=== PATIENT | male | born 1950 | race American Indian/Alaskan Native ===

== ENCOUNTER 2019-07-13 07:23 | Inpatient (IN) | payer MEDICARE ==
--- NOTE | 2019-07-13 08:06 | Emergency Department Report ---
HPI - General Chief Complaint: Chest Pain Time Seen by Provider: 07/13/19 07:40 - HPI HPI: 69-year-old male presents to the emergency department by EMS after they originally got a call from a third constitution party with the complaint of chest pain. When EMS arrived to the house, the patient was the only person there and appears to have been the person who called 911. When I asked the patient the reason he has come to the hospital, or what is bothering him, the patient starts talking about possible stroke as he says that he was shaking and it woke him from sleep. However he says that he remembers the shaking/convulsions. He is a very poor historian however. I asked if he has ever had a stroke in the past and he answers yes. He did not initially talk about having chest pain but when asked about the original EMS call he says that he has some generalized chest discomfort. Unknown past medical history. ED Past Medical Hx - Past Medical History Previous Medical History?: Yes Hx Hypertension: Yes Hx COPD: Yes - Social History Smoking Status: Never Smoker Substance Use Type: None - Medications Home Medications: Home Medications Medication Instructions Recorded Confirmed Last Taken Type ALBUTEROL NEB's 0.083 mg INHALATION PRN PRN 07/13/19 07/13/19 07/12/19 History Albuterol Sulfate [Proventil Hfa] 2 puff PO Q4H 07/13/19 07/13/19 07/12/19 History Allopurinol 300 mg PO QDAY 07/13/19 07/13/19 07/12/19 History AtorvaSTATin [Lipitor] 20 mg PO QDAY 07/13/19 07/13/19 07/12/19 History ISOSORBIDE MONOnitrate [Imdur ER] 60 mg PO QDAY 07/13/19 07/13/19 07/12/19 History Metoprolol SUCCINATE ER TAB 12.5 mg PO QDAY 07/13/19 07/13/19 07/12/19 History hydrALAZINE 25 mg PO TID 07/13/19 07/13/19 07/12/19 History ED Review of Systems ROS: Stated complaint: GENERAL ILLNESS Other details as noted in HPI Comment: All other systems reviewed and negative Constitutional: denies: chills, fever Eyes: denies: eye pain, vision change ENT: denies: ear pain, throat pain Respiratory: denies: cough, wheezing Cardiovascular: chest pain. denies: palpitations Gastrointestinal: denies: abdominal pain, vomiting Genitourinary: denies: dysuria, discharge Musculoskeletal: denies: back pain, arthralgia Skin: denies: rash, lesions Neurological: headache, other (convulsions) Physical Exam - Physical Exam Vital Signs: Vital Signs 07/13/19 07:41 Temperature 98.2 F Pulse Rate 103 H Respiratory 20 Rate Blood Pressure 133/88 O2 Sat by Pulse 97 Oximetry Physical Exam: GENERAL: The patient is well-developed well-nourished. HENT: Normocephalic. Atraumatic. Patient has moist mucous membranes. EYES: Extraocular motions are intact. Pupils equal reactive to light bilate rally. No nystagmus. NECK: Supple. Trachea is midline. CHEST/LUNGS: Clear to auscultation. There is no respiratory distress noted. HEART/CARDIOVASCULAR: Regular. There is no tachycardia. There is no murmur. ABDOMEN: Abdomen is soft, nontender. Patient has normal bowel sounds. There is no abdominal distention. SKIN: Skin is warm and dry. NEURO: Patient is awake and cooperative. He appears to have some mild dysarthria. No facial asymmetry. No pronator drift. MUSCULOSKELETAL: There is no tenderness or deformity. There is no evidence of acute injury. ED Course Vital Signs 07/13/19 07:41 Temperature 98.2 F Pulse Rate 103 H Respiratory 20 Rate Blood Pressure 133/88 O2 Sat by Pulse 97 Oximetry ED Medical Decision Making - Lab Data Result diagrams: 07/13/19 07:58 07/13/19 07:58 - EKG Data -: EKG Interpreted by Me EKG shows normal: sinus rhythm (PVCs), axis, intervals, QRS complexes, ST-T waves (flat T waves) Rate: tachycardia (104 bpm) - EKG Data When compared to previous EKG there are: previous EKG unavailable Interpretation: other (Sinus tach with PVCs, flat T waves lateral leads. No STEMI) - Radiology Data Radiology results: report reviewed, image reviewed interpreted by me: Chest x-ray does not show any acute process. There are no pleural effusions, obvious pneumonia and there is no pneumothorax. CT HEAD WITHOUT CONTRAST INDICATION : AMS. TECHNIQUE: Axial imaging performed from the skull apex through the skull base without the use of contrast. All CT scans at this location are performed using CT dose reduction for ALARA by means of automated exposure control. COMPARISON: None FINDINGS: Parenchyma: A large hypodensity involving the superior left temporal lobe and left parietal lobe. No mass effect. No hemorrhage. No midline shift. Small chronic left basal ganglia lacunar infarcts. The brainstem and cerebellum are normal. Ventricles: The left lateral ventricle is likely larger than the right which reflects a negative mass effect of the left MCA distribution hypodensity. Soft tissues: Soft tissues including the orbits appear normal. Bones: No acute osseous abnormality. Sinuses: Sinuses and mastoid air cells are clear. IMPRESSION: 1. A subacute nonhemorrhagic left MCA infarct. 2. No evidence of acute infarct or hemorrhage. - Medical Decision Making This patient presents with the complaints of chest pain and some type of shaking or seizure-like activity, although he was awake for this. The patient is dif ficult to understand and appears to have some mild dysarthria. Otherwise there is no facial asymmetry or any obvious motor or lateralizing deficits. Based on his history and our conversation, the patient rather previously had a stroke or has concerns that he had a stroke. Regarding the chest pain, he had an EKG that does not show any signs of ST elevation AK or dysrhythmia. Labs have been most ly unremarkable including negative troponin. Chest x-ray did not show any acute process. Regarding the patient's concern for stroke, he is low on the NIH stroke scale secondary to some perceived mild dysarthria. I do not see any lateralizing deficits. CT scan of the head was done that shows a subacute left MCA infarct. There is no evidence of any acute infarct or hemorrhage but given his symptoms he may need further evaluation and workup for possible CVA. Since there is no last known well time the patient is outside of the window for TPA. He will be given a full dose aspirin. Patient has been accepted for admission by the hospitalist, Dr. Thomas - Differential Diagnosis CVA, TIA, AK, Hypoglycemia, Dysrythmia Critical Care Time: No Critical care attestation.: If time is entered above; I have spent that time in minutes in the direct care of this critically ill patient, excluding procedure time. ED Disposition Clinical Impression: Acute chest pain CVA (cerebral vascular accident) Qualifiers: CVA mechanism: unspecified Qualified Code(s): I63.9 - Cerebral infarction, unspecified Disposition: DC-01 TO HOME OR SELFCARE Is pt being admited?: No Condition: Fair Time of Disposition: 16:32 - Assessment Assessment Interval: Baseline - Level of Consciousness 1a. Level of Consciousness: alert/keenly responsive - LOC Questions 1b. LOC Questions: answers both correctly - LOC Command 1c. LOC Commands: performs tasks correctly - Best Gaze 2. Best Gaze: normal - Visual 3. Visual: no visual loss - Facial Palsy 4. Facial Palsy: normal symmetrical movement - Motor Arm 5a. Motor Arm Left: no drift 5b. Motor Arm Right: no drift - Motor Leg 6a. Motor Leg Left: no drift 6b. Motor Leg Right: no drift - Limb Ataxia 7. Limb Ataxia: absent - Sensory 8. Sensory: normal - Best Language 9. Best Language: no aphasia - Dysarthria 10. Dysarthria: mild/moderate dysarthria - Extinction and Inattention 11. Extinction/Inattention: no abnormality - Scoring Total Score: 1 Stroke Severity: Minor Stroke
[2019-07-13 08:15] LABS: Basophils # (Auto) 0.1 K/mm3 (0.0-0.1); Basophils % (Auto) 0.6 % (0.0-1.8); Eosinophils # (Auto) 0.2 K/mm3 (0.0-0.4); Eosinophils % (Auto) 1.6 % (0.0-4.3); Hematocrit 38.1 % (35.5-45.6); Hemoglobin 12.2 gm/dl (11.8-15.2); Lymphocytes # (Auto) 1.7 K/mm3 (1.2-5.4); Mean Corpuscular HGB Conc 32 % (32-34); Mean Corpuscular Volume 95 fl (84-94); Monocytes # (Auto) 0.7 K/mm3 (0.0-0.8); Monocytes % (Auto) 6.4 % (0.0-7.3); Platelet Count 192 K/mm3 (140-440); Red Blood Count 4.02 M/mm3 (3.65-5.03); Red Cell Distribution Width 16.1 % (13.2-15.2)
[2019-07-13 08:23] LABS: INR 0.97 (0.87-1.13)
[2019-07-13 08:24] LABS: Partial Thromboplastin Time 24.5 Sec. (24.2-36.6)
--- NOTE | 2019-07-13 08:26 | XRay Report ---
CHEST 1 VIEW INDICATION: CP. Acute generalized chest pain COMPARISON: 02/09/2013 FINDINGS: Support devices: Unipolar cardiac lead projects into the left ventricle. Heart: Within normal limits. Lungs/Pleura: No acute air space or interstitial disease. Additional findings: None. IMPRESSION: 1. No acute findings. Signer Name: Chung Kwan MD Signed: 07/13/2019 8:22 AM Workstation Name: [id number]
[2019-07-13 08:34] LABS: Alanine Aminotransferase 9 units/L (7-56); Albumin 3.7 g/dL (3.9-5); BUN/Creatinine Ratio 6; Blood Urea Nitrogen 7 mg/dL (9-20); Hemolysis Index 7
--- NOTE | 2019-07-13 11:29 | Cat Scan Report ---
CT HEAD WITHOUT CONTRAST INDICATION : AMS. TECHNIQUE: Axial imaging performed from the skull apex through the skull base without the use of con trast. All CT scans at this location are performed using CT dose reduction for ALARA by means of aut omated exposure control. COMPARISON: None FINDINGS: Parenchyma: A large hypodensity involving the superior left temporal lobe and left parietal lobe. No mass effect. No hemorrhage. No midline shift. Small chronic left basal ganglia lacunar infarcts. The brainstem and cerebellum are normal. Ventricles: The left lateral ventricle is likely larger than the right which reflects a negative mas s effect of the left MCA distribution hypodensity. Soft tissues: Soft tissues including the orbits appear normal. Bones: No acute osseous abnormality. Sinuses: Sinuses and mastoid air cells are clear. IMPRESSION: 1. A subacute nonhemorrhagic left MCA infarct. 2. No evidence of acute infarct or hemorrhage. Signer Name: Chris Kat MD Signed: 07/13/2019 11:24 AM Workstation Name: [id number]
[2019-07-13 11:30] LABS: Bacteria,Urine 1+ /HPF (Negative); Bilirubin,Urine NEG (Negative); Blood,Urine NEG (Negative); Color,Urine Yellow (Yellow); Mucus,Urine FEW /HPF; Urobilinogen,Urine < 2.0 mg/dL (<2.0)
[2019-07-13 11:40] LABS: Amphetamine Screen,Urine PRESUMPTIVE NEGATIVE; Benzodiazepines Screen,Urine PRESUMPTIVE NEGATIVE; Cannabinoid Screen,Urine PRESUMPTIVE NEGATIVE; Cocaine Screen,Urine PRESUMPTIVE NEGATIVE; Methadone Screen,Urine PRESUMPTIVE NEGATIVE; Opiate Screen,Urine PRESUMPTIVE NEGATIVE
[2019-07-13] MEDS ORDERED: BABY ASPIRIN PO ONE (12:15)
[2019-07-13] MEDS ORDERED: BABY ASPIRIN ONE (14:35)
[2019-07-13] MEDS ORDERED: ALBUTEROL INHALATION PRN (22:02)
[2019-07-13] MEDS ORDERED: ZOFRAN IV PRN (22:04)
[2019-07-13] MEDS ORDERED: TYLENOL PO PRN (22:04)
[2019-07-13] MEDS ORDERED: SODIUM CHLORIDE FLUSH SYRINGE 10 ML IV PRN (22:04)
[2019-07-13] MEDS ORDERED: DILAUDID IV PRN (22:04)
[2019-07-13] MEDS ORDERED: IBUPROFEN PO PRN (22:04)
[2019-07-13] MEDS ORDERED: PROAIR IH SCH (22:15)
[2019-07-13] MEDS: SODIUM CHLORIDE FLUSH SYRINGE 10 ML IV SCH (22:45)
[2019-07-14] MEDS ORDERED: PROVENTIL IH SCH
[2019-07-14] MEDS ORDERED: PROVENTIL IH PRN (00:39)
[2019-07-14 06:02] LABS: Basophils % (Auto) 0.6 % (0.0-1.8); Eosinophils # (Auto) 0.4 K/mm3 (0.0-0.4); Eosinophils % (Auto) 4.8 % (0.0-4.3); Hematocrit 38.4 % (35.5-45.6); Hemoglobin 12.4 gm/dl (11.8-15.2); Lymphocytes # (Auto) 1.8 K/mm3 (1.2-5.4); Mean Corpuscular HGB Conc 32 % (32-34); Mean Corpuscular Volume 94 fl (84-94); Monocytes # (Auto) 0.6 K/mm3 (0.0-0.8); Monocytes % (Auto) 7.9 % (0.0-7.3); Platelet Count 205 K/mm3 (140-440); Red Blood Count 4.07 M/mm3 (3.65-5.03)
[2019-07-14 06:07] LABS: Alanine Aminotransferase 9 units/L (7-56); Albumin 3.7 g/dL (3.9-5); BUN/Creatinine Ratio 8; Blood Urea Nitrogen 8 mg/dL (9-20); Calcium 9.1 mg/dL (8.4-10.2); Hemolysis Index 2
--- NOTE | 2019-07-14 06:15 | Event Note ---
Date: 07/13/19 See H/p in reports Chest pain r/o MO HTN Gout HLD
--- NOTE | 2019-07-14 06:37 | History and Physical Report ---
CHIEF COMPLAINT: Left-sided chest pain for 1 day. HISTORY OF PRESENT ILLNESS: A 69-year-old -[place] male with history of hypertension and COPD, comes in for left-sided chest pain for 1 day duration. Chest pain woke him from sleep. The patient also stated that he was having shaking. The patient is a very poor historian, not able to describe. Chest pain is retrosternal, nonradiating. No diaphoresis, no shortness of breath, no palpitations. Chest pain is about 6 on a scale of 1-10. No exacerbating or relieving factors. No recent travel. PAST MEDICAL HISTORY: Significant for hypertension, hyperlipidemia, coronary artery disease, asthma. SOCIAL HISTORY: Does not smoke. No alcohol. PAST SURGICAL HISTORY: None. FAMILY HISTORY: Hypertension. REVIEW OF SYSTEMS: Significant for left-sided chest pain with no radiation. Pain is about 6 on a scale of 1-10. Otherwise, no shortness of breath. Otherwise, review of systems negative. A 14-point review of systems is done. PHYSICAL EXAMINATION: GENERAL: A young elderly male, obese, resting in bed comfortably. VITAL SIGNS: Blood pressure is 133/88 and 141/100, temperature is 98.2, pulse is 103, respirations are 20, sats 97%. HEENT: Unremarkable. Pupils equal and reactive. NECK: Supple, no lymphadenopathy, no thyromegaly. LUNGS: Clear to auscultation and percussion. Good air entry. CARDIOVASCULAR: S1, S2 heard. No gallop, no murmur, no rub. Apical impulse in left fifth intercostal space and midclavicular line. ABDOMEN: Soft and benign. No hepatosplenomegaly. No guarding, no rigidity. Hernial orifices are normal. EXTREMITIES: Good pedal pulses. No pedal edema. CENTRAL NERVOUS SYSTEM: Alert and oriented x 4, nonfocal exam. Moving all four extremities. SKIN: Normal. LABORATORY DATA: EKG shows sinus tachycardia, heart rate of 104. Premature ventricular complexes. Nonspecific T-wave abnormalities. Chest x-ray, no acute findings. Head CT, subacute nonhemorrhagic left MCA infarct. No evidence of acute infarct or hemorrhage. Labs are significant for normal CBC. Electrolytes are normal. Glucose is 155. A1c is 5.9. Urine is negative. Drug screen is negative. ASSESSMENT AND PLAN: 1. Chest pain, rule out myocardial infarction, chest pain protocol. Serial troponins. Differential diagnosis of costochondritis and gastroesophageal reflux disease ruled out. 2. Hypertension. Continue antihypertensives in the form of metoprolol 12.5 once a day and hydralazine 25 mg 3 times a day. 3. Coronary artery disease. Continue Imdur. 4. Hyperlipidemia. Continue atorvastatin. 5. Asthma. Continue albuterol inhalers and nebulizers. 6. Gout. Continue allopurinol for prevention of gout. 7. Deep venous thrombosis prophylaxis, on Lovenox and gastrointestinal prophylaxis. JOB# [id number] VSM/NTS
[2019-07-14] MEDS ORDERED: LEXISCAN IV ONE ×3 (08:10→10:20)
[2019-07-14] MEDS: APRESOLINE PO SCH ×2 (09:08→21:45)
[2019-07-14] MEDS ORDERED: PNEUMOVAX 23 IM ONE (12:00)
[2019-07-14] MEDS: ZYLOPRIM PO SCH (12:12)
[2019-07-14] MEDS: IMDUR PO SCH (12:12)
[2019-07-14] MEDS: PEPCID PO SCH ×2 (12:13→21:46)
[2019-07-14] MEDS: TOPROL XL PO SCH (12:14)
[2019-07-14] MEDS: SODIUM CHLORIDE FLUSH SYRINGE 10 ML IV SCH ×2 (12:18→21:47)
[2019-07-14] MEDS: COZAAR PO SCH (12:20)
[2019-07-14] MEDS ORDERED: LOVENOX SUB-Q SCH (22:00)
--- NOTE | 2019-07-15 05:41 | Progress Note ---
Assessment and Plan Assessment and plan: Chest pain. Admitted to Telemetry Stress test today Hypertension Monitor BP Full code status may dc home if stress test negative History Interval history: chest pain Hospitalist Physical - Physical exam Narrative exam: Gen: Not in acute distress, lying in bed HEENT: Normocephalic, atraumatic Neck: supple, no JVD Heart: S1 and S2 reg, tachy, no murmurs, rubs or gallop Lungs: Clear to auscultation, no rhonchi, no wheeze Abd: soft, non tender, non distended, normal BS, Ext: No edema, no clubbing, no cyanosis Neuro: Awake, alert, oriented X 3, no focal neurological signs - Constitutional Vitals: Temp Pulse Resp BP Pulse Ox 98.6 F 78 18 126/76 99 07/15/19 03:17 07/15/19 05:00 07/15/19 03:17 07/15/19 03:17 07/15/19 03:17 Results - Labs CBC & Chem 7: 07/14/19 05:28 07/14/19 05:28 Labs: Laboratory Last Values WBC 7.6 K/mm3 (4.5-11.0) 07/14/19 05:28 RBC 4.07 M/mm3 (3.65-5.03) 07/14/19 05:28 Hgb 12.4 gm/dl (11.8-15.2) 07/14/19 05:28 Hct 38.4 % (35.5-45.6) 07/14/19 05:28 MCV 94 fl (84-94) 07/14/19 05:28 MCH 31 pg (28-32) 07/14/19 05:28 MCHC 32 % (32-34) 07/14/19 05:28 RDW 16.0 % (13.2-15.2) H 07/14/19 05:28 Plt Count 205 K/mm3 (140-440) 07/14/19 05:28 Lymph % (Auto) 24.0 % (13.4-35.0) 07/14/19 05:28 [place] % (Auto) 7.9 % (0.0-7.3) H 07/14/19 05:28 Eos % (Auto) 4.8 % (0.0-4.3) H 07/14/19 05:28 Baso % (Auto) 0.6 % (0.0-1.8) 07/14/19 05:28 Lymph # 1.8 K/mm3 (1.2-5.4) 07/14/19 05:28 [place] # 0.6 K/mm3 (0.0-0.8) 07/14/19 05:28 Eos # 0.4 K/mm3 (0.0-0.4) 07/14/19 05:28 Baso # 0.0 K/mm3 (0.0-0.1) 07/14/19 05:28 Seg Neutrophils % 62.7 % (40.0-70.0) 07/14/19 05:28 Seg Neutrophils # 4.7 K/mm3 (1.8-7.7) 07/14/19 05:28 PT 12.6 Sec. (12.2-14.9) 07/13/19 07:58 INR 0.97 (0.87-1.13) 07/13/19 07:58 APTT 24.5 Sec. (24.2-36.6) 07/13/19 07:58 Sodium 138 mmol/L (137-145) 07/14/19 05:28 Potassium 4.3 mmol/L (3.6-5.0) 07/14/19 05:28 Chloride 98.7 mmol/L (98-107) 07/14/19 05:28 Carbon Dioxide 30 mmol/L (22-30) 07/14/19 05:28 14 mmol/L 07/14/19 05:28 BUN 8 mg/dL (9-20) L 07/14/19 05:28 1.0 mg/dL (0.8-1.5) 07/14/19 05:28 Estimated GFR > 60 ml/min 07/14/19 05:28 8 % 07/14/19 05:28 Glucose 123 mg/dL (75-100) H 07/14/19 05:28 5.9 % (4-6) 07/13/19 22:43 Calcium 9.1 mg/dL (8.4-10.2) 07/14/19 05:28 0.50 mg/dL (0.1-1.2) 07/14/19 05:28 AST 23 units/L (5-40) 07/14/19 05:28 ALT 9 units/L (7-56) 07/14/19 05:28 99 units/L (35-129) 07/14/19 05:28 < 0.010 ng/mL (0.00-0.029) 07/14/19 05:28 7.3 g/dL (6.3-8.2) 07/14/19 05:28 3.7 g/dL (3.9-5) L 07/14/19 05:28 1.0 % 07/14/19 05:28 TSH 2.250 mlU/mL (0.270-4.200) 07/13/19 07:58 Yellow (Yellow) 07/13/19 10:54 Clear (Clear) 07/13/19 10:54 5.0 (5.0-7.0) 07/13/19 10:54 Ur Specific [place] 1.021 (1.003-1.030) 07/13/19 10:54 30 mg/dl mg/dL (Negative) 07/13/19 10:54 Neg mg/dL (Negative) 07/13/19 10:54 Neg mg/dL (Negative) 07/13/19 10:54 Neg (Negative) 07/13/19 10:54 Neg (Negative) 07/13/19 10:54 Neg (Negative) 07/13/19 10:54 < 2.0 mg/dL (<2.0) 07/13/19 10:54 Ur Leukocyte Esterase Neg (Negative) 07/13/19 10:54 5.0 /HPF (0.0-6.0) 07/13/19 10:54 3.0 /HPF (0.0-6.0) 07/13/19 10:54 U Epithel Cells (Auto) 1.0 /HPF (0-13.0) 07/13/19 10:54 1+ /HPF (Negative) 07/13/19 10:54 Few /HPF 07/13/19 10:54 Presumptive negative 07/13/19 10:54 Presumptive negative 07/13/19 10:54 Ur Barbiturates Screen Presumptive negative 07/13/19 10:54 Ur Phencyclidine Scrn Presumptive negative 07/13/19 10:54 Ur Amphetamines Screen Presumptive negative 07/13/19 10:54 U Benzodiazepines Scrn Presumptive negative 07/13/19 10:54 Presumptive negative 07/13/19 10:54 U Marijuana (THC) Screen Presumptive negative 07/13/19 10:54 Disclamer 07/13/19 10:54 Active Medications - Current Medications Current Medications: Generic Name Dose Route Start Last Admin Trade Name Freq PRN Reason Stop Dose Admin Acetaminophen 650 mg 07/13/19 22:04 Tylenol PO Q4H PRN Pain MILD(1-3)/Fever >100.5/[place] Albuterol 2.5 mg 07/14/19 00:39 Proventil IH Q4HRT PRN Shortness Of Breath Allopurinol 300 mg 07/14/19 10:00 07/14/19 12:12 Zyloprim PO 300 mg QDAY EARNEST Administration Atorvastatin Calcium 20 mg 07/14/19 10:00 07/14/19 12:12 Lipitor PO 20 mg QDAY EARNEST Administration Enoxaparin Sodium 40 mg 07/14/19 22:00 07/14/19 21:46 Lovenox SUB-Q 40 mg QDAY@2200 EARNEST Administration Famotidine 20 mg 07/14/19 10:00 07/14/19 21:46 Pepcid PO 20 mg BID EARNEST Administration Hydralazine HCl 25 mg 07/14/19 08:00 07/14/19 21:45 Apresoline PO 25 mg TID EARNEST Administration Hydromorphone HCl 0.5 mg 07/13/19 22:04 Dilaudid IV Q3H PRN Pain , Severe (7-10) Ibuprofen 600 mg 07/13/19 22:04 07/14/19 12:13 Ibuprofen PO 600 mg Q6H PRN Administration Pain, Mild (1-3) Isosorbide Mononitrate 60 mg 07/14/19 10:00 07/14/19 12:12 Imdur PO 60 mg QDAY EARNEST Administration Losartan Potassium 100 mg 07/14/19 10:00 07/14/19 12:20 Cozaar PO 100 mg QDAY EARNEST Administration Metoprolol Succinate 12.5 mg 07/14/19 10:00 07/14/19 12:14 Toprol Xl PO 12.5 mg QDAY EARNEST Administration Ondansetron HCl 4 mg 07/13/19 22:04 Zofran IV Q8H PRN Nausea And Vomiting Sodium Chloride 10 ml 07/13/19 23:00 07/14/19 21:47 Sodium Chloride Flush Syringe 10 Ml IV 10 ml BID EARNEST Administration Sodium Chloride 10 ml 07/13/19 22:04 Sodium Chloride Flush Syringe 10 Ml IV PRN PRN LINE FLUSH
[2019-07-15 08:16] VITALS: BP 124/72
--- NOTE | 2019-07-15 08:38 | Discharge Summary ---
Providers - Providers Date of Admission: 07/13/19 12:16 Date of discharge: 07/15/19 Attending physician: RADHA MA Primary care physician: SUSANNA HAMMONDS MD Hospitalization Condition: Fair Disposition: DC-01 TO HOME OR SELFCARE - Discharge Diagnoses (1) GERD (gastroesophageal reflux disease) Status: Acute (2) Acute chest pain Status: Acute Comment: due to GERD Exam - Constitutional Vitals: Temp Pulse Resp BP Pulse Ox 97.8 F 91 H 18 124/72 100 07/15/19 07:54 07/15/19 07:54 07/15/19 07:54 07/15/19 07:54 07/15/19 07:54 Plan Activity: advance as tolerated Diet: low fat, low cholesterol, low salt Plan of Treatment: 1.Follow up with PCP in 1 week 2.Follow up with cardiology in 1 week. Assessment: 1.Chest pain Follow up with: SUSANNA HAMMONDS MD [Primary Care Provider] - 3-5 Days
[2019-07-15] MEDS: SODIUM CHLORIDE FLUSH SYRINGE 10 ML IV SCH (10:00)
[2019-07-15] MEDS: ZYLOPRIM PO SCH (11:00)
[2019-07-15] MEDS: APRESOLINE PO SCH ×2 (11:00→14:00)
[2019-07-15] MEDS: COZAAR PO SCH (11:00)
[2019-07-15] MEDS: TOPROL XL PO SCH (11:00)
[2019-07-15] MEDS: IMDUR PO SCH (11:00)
[2019-07-15] MEDS: PEPCID PO SCH (11:00)
--- NOTE | 2019-07-15 12:41 | Treadmill Report ---
THALLIUM STRESS TEST LEFT VENTRICLE: Left ventricle is at the upper limits of normal in size. Perfusion study demonstrates a small inferoapical defect of low intensity, with no reversibility on the resting study. Gated analysis suggests mild left ventricular systolic dysfunction, ejection fraction calculated at 41%. CONCLUSION: Small fixed inferoapical defect of low intensity, suggests diaphragmatic attenuation artifact. No significant reversible defects identified. Study is negative for ischemia. Recommend clinical correlation and echocardiographic reassessment of left ventricular chamber size and systolic function. [facility]# [id number] CA/NTS
== END 2019-07-15 16:45 | disposition home or self-care (01) | DRG 392 ==
LOC: ED 07:23 → 4A 12:16
PROVIDERS: ADMIT Internal Medicine; ATTEND Internal Medicine
PROC: 3E0234Z Introduction of Serum, Toxoid and Vaccine into Muscle, Percutaneous Approach (ICD-10-PCS; principal; 2019-07-14)
DX: K21.9 Gastro-esophageal reflux disease without esophagitis (principal); I10 Essential (primary) hypertension; M10.9 Gout, unspecified; I25.10 Atherosclerotic heart disease of native coronary artery without angina pectoris; E78.5 Hyperlipidemia, unspecified; J44.9 Chronic obstructive pulmonary disease, unspecified; Z79.899 Other long term (current) drug therapy; Z82.49 Family history of ischemic heart disease and other diseases of the circulatory system; Z23 Encounter for immunization
CPT/HCPCS: 36415; 70450; 71045; 78452; 80053; 80307; 81001; 83036; 84443; 84484; 85025; 85610; 85730; 90732; 93005; 93010; 93017; 96374; G0378; A9270-GY; A9502; J1650; J2785

== ENCOUNTER 2020-04-17 17:14 | Inpatient (IN) | payer MEDICARE ==
--- NOTE | 2020-04-17 17:27 | Consultation ---
History of Present Illness Consult date: 04/17/20 History of present illness: [facility] Consult Services Date of Service: 04/17/2020 17:02:28 Impression: Rule Out Acute Ischemic Stroke toxic and metabolic Comments/Sign-Out: Neighbor found him crawling out of his home, noted he is slurred his speech. Has previous hx of stroke. Gait is different. - MRI brain and stroke work up - ASA - Toxic and metabolic work up Metrics: Last Known Well: 04/16/2020 20:00:00 [facility] Notification Time: 04/17/2020 17:01:54 Arrival Time: 04/17/2020 17:11:00 Stamp Time: 04/17/2020 17:02:28 Time First Login Attempt: 04/17/2020 17:08:04 Video Start Time: 04/17/2020 17:08:04 Symptoms: slurred speech NIHSS Start Assessment Time: 04/17/2020 17:12:38 Patient is not a candidate for tPA. Patient was not deemed candidate for tPA thrombolytics because of Last Well Known Above 4.5 Hours. Video End Time: 04/17/2020 17:26:18 CT head showed no acute hemorrhage or acute core infarct. CT head was reviewed. Clinical Presentation is not Suggestive of Large Vessel Occlusive Disease ED Physician notified of diagnostic impression and management plan on 04/17/2020 17:26:20 Our recommendations are outlined below. Recommendations: Activate Stroke Protocol Admission/Order Set Stroke/Telemetry Floor Neuro Checks Bedside Swallow Eval DVT Prophylaxis IV Fluids, Normal Saline Head of Bed 30 Degrees Euglycemia and Avoid Hyperthermia (PRN Acetaminophen) Antiplatelet Therapy Recommended Routine Consultation with Inhouse Neurology for Follow up Care Sign Out: Discussed with Emergency Department Provider History of Present Illness: Patient is a 70 year old Male. Patient was brought by EMS for symptoms of slurred speech Neighbor found him crawling out of his home, noted he is slurred his speech. Has previous hx of stroke. Gait is different. Examination: 1A: Level of Consciousness - Alert; keenly responsive + 0 1B: Ask Month and Age - Both Questions Right + 0 1C: Blink Eyes & Squeeze Hands - Performs Both Tasks + 0 2: Test Horizontal Extraocular Movements - Normal + 0 3: Test Visual Tripathi - No Visual Loss + 0 4: Test Facial Palsy (Use Grimace if Obtunded) - Normal symmetry + 0 5A: Test Left Arm Motor Drift - No Drift for 10 Seconds + 0 5B: Test Right Arm Motor Drift - No Drift for 10 Seconds + 0 6A: Test Left Leg Motor Drift - No Drift for 5 Seconds + 0 6B: Test Right Leg Motor Drift - No Drift for 5 Seconds + 0 7: Test Limb Ataxia (FNF/Heel-Wilkes) - No Ataxia + 0 8: Test Sensation - Normal; No sensory loss + 0 9: Test Language/Aphasia - Normal; No aphasia + 0 10: Test Dysarthria - Mild-Moderate Dysarthria: Slurring but can be understood + 1 11: Test Extinction/Inattention - No abnormality + 0 NIHSS Score: 1 Due to the immediate potential for life-threatening deterioration due to underlying acute neurologic illness, I spent 35 minutes providing critical care. This time includes time for face to face visit via telemedicine, review of medical records, imaging studies and discussion of findings with providers, the patient and/or family. Dr All [facility] Case [id number] Medications and Allergies Allergies Allergy/AdvReac Type Severity Reaction Status Date / Time No Known Allergies Allergy Unverified 07/13/19 08:08 Home Medications Medication Instructions Recorded Confirmed Last Taken Type ALBUTEROL NEB's 0.083 mg INHALATION PRN PRN 07/13/19 07/13/19 07/12/19 History Albuterol Sulfate [Proventil Hfa] 2 puff PO Q4H 07/13/19 07/13/19 07/12/19 History Allopurinol 300 mg PO QDAY 07/13/19 07/13/19 07/12/19 History AtorvaSTATin [Lipitor] 20 mg PO QDAY 07/13/19 07/13/19 07/12/19 History ISOSORBIDE MONOnitrate [Imdur ER] 60 mg PO QDAY 07/13/19 07/13/19 07/12/19 History Metoprolol SUCCINATE ER TAB 12.5 mg PO QDAY 07/13/19 07/13/19 07/12/19 History hydrALAZINE 25 mg PO TID 07/13/19 07/13/19 07/12/19 History
[2020-04-17] MEDS ORDERED: ASPIRIN 325 MG TAB PO ONE (17:28)
--- NOTE | 2020-04-17 17:39 | Emergency Department Report ---
HPI - General PUI?: No Time Seen by Provider: 04/17/20 17:22 - HPI HPI: Room 23 The patient is a 70-year-old male present with a chief complaint of CVA. The patient was brought in by EMS after being found by a neighbor with dysarthria. The patient's last known well time was 20:00 last night. When asked what is bothering him the patient states he "almost passed out." When asked if he was having difficulty speaking the patient said "yes." Patient denied weakness ED Past Medical Hx - Past Medical History Hx Hypertension: Yes Hx Heart Attack/AMI: Yes Hx COPD: Yes - Surgical History Hx Pacemaker: Yes Additional Surgical History: pacemaker - Family History Family history: no significant - Social History Smoking Status: Never Smoker Substance Use Type: None - Medications Home Medications: Home Medications Medication Instructions Recorded Confirmed Last Taken Type ALBUTEROL NEB's 0.083 mg INHALATION PRN PRN 07/13/19 07/13/19 07/12/19 History Albuterol Sulfate [Proventil Hfa] 2 puff PO Q4H 07/13/19 07/13/19 07/12/19 History Allopurinol 300 mg PO QDAY 07/13/19 07/13/19 07/12/19 History AtorvaSTATin [Lipitor] 20 mg PO QDAY 07/13/19 07/13/19 07/12/19 History ISOSORBIDE MONOnitrate [Imdur ER] 60 mg PO QDAY 07/13/19 07/13/19 07/12/19 History Metoprolol SUCCINATE ER TAB 12.5 mg PO QDAY 07/13/19 07/13/19 07/12/19 History hydrALAZINE 25 mg PO TID 07/13/19 07/13/19 07/12/19 History ED Review of Systems ROS: Stated complaint: POSS STROKE Other details as noted in HPI Constitutional: no symptoms reported Respiratory: no symptoms reported Endocrine: no symptoms reported Neurological: other (Dysarthria). denies: weakness Physical Exam - Physical Exam Physical Exam: GENERAL: The patient is well-developed well-nourished male lying on stretcher not appearing to be in acute distress. [] HEENT: Normocephalic. Atraumatic. Extraocular motions are intact. Patient has moist mucous membranes. NECK: Supple. Trachea midline CHEST/LUNGS: Clear to auscultation. There is no respiratory distress noted. HEART/CARDIOVASCULAR: Regular. There is no tachycardia. There is no gallop rub or murmur. ABDOMEN: Abdomen is soft, nontender. Patient has normal bowel sounds. There is no abdominal distention. SKIN: There is no rash. There is no edema. There is no diaphoresis. NEURO: The patient is awake, alert, and oriented. The patient is cooperative. The patient has no focal neurologic deficits. The patient has normal speech. Patient moves all extremities MUSCULOSKELETAL: There is no evidence of acute injury. ED Course - Consultations Consultation #1: 04/17/20 17:37 Case discussed with tele-neurologist- recommends admission to the hospital for MRI. Agrees with aspirin. ED Medical Decision Making - Lab Data Result diagrams: 04/17/20 17:36 04/17/20 17:36 Laboratory Tests 04/17/20 04/17/20 04/17/20 17:36 17:36 17:36 WBC 9.3 RBC 3.54 L Hgb 11.0 L Hct 34.1 L MCV 96 H MCH 31 MCHC 32 RDW 20.0 H Plt Count 130 L Lymph % (Auto) 20.5 [place] % (Auto) 7.7 H Eos % (Auto) 1.5 Baso % (Auto) 0.8 Lymph # 1.9 [place] # 0.7 Eos # 0.1 Baso # 0.1 Seg Neutrophils % 69.5 Seg Neutrophils # 6.5 PT 13.7 INR 1.04 APTT 22.8 L Thrombin Time Sodium 136 L Potassium 3.5 L Chloride 89.1 L Carbon Dioxide 25 Anion Gap 25 BUN 10 Creatinine 1.4 Estimated GFR > 60 BUN/Creatinine Ratio 7 Glucose 186 H Calcium 7.6 L Troponin T < 0.010 04/17/20 17:36 WBC RBC Hgb Hct MCV MCH MCHC RDW Plt Count Lymph % (Auto) [place] % (Auto) Eos % (Auto) Baso % (Auto) Lymph # [place] # Eos # Baso # Seg Neutrophils % Seg Neutrophils # PT INR APTT Thrombin Time 15.0 L Sodium Potassium Chloride Carbon Dioxide Anion Gap BUN Creatinine Estimated GFR BUN/Creatinine Ratio Glucose Calcium Troponin T - EKG Data -: EKG Interpreted by [place] EKG shows normal: sinus rhythm Rate: tachycardia (108 bpm) - EKG Data When compared to previous EKG there are: previous EKG unavailable Interpretation: other (No ischemic changes seen) - Radiology Data Radiology results: report reviewed (CT head, chest x-ray), image reviewed (CT head, chest x-ray) interpreted by me: Chest x-ray-no focal infiltrates, no pneumothorax [address] [address] XRay Report Signed Patient: CHEKO MORA MR#: [id number] : 1950 Acct:[id number] Age/Sex: 70 / M ADM Date: 04/17/20 Loc: ED Attending Dr: Ordering Physician: SEDRICK ARELLANO MD Date of Service: 04/17/20 Procedure(s): XR chest 1V ap Accession Number(s): [id number] cc: SEDRICK ARELLANO MD Fluoro Time In Minutes: CHEST 1 VIEW 04/17/2020 5:18 PM INDICATION / CLINICAL INFORMATION: Near syncope, low-grade temperature. COMPARISON: 07/13/2019 FINDINGS: SUPPORT DEVICES: Stable position of cardiac ICD. HEART / MEDIASTINUM: Normal heart size. Atherosclerosis in the thoracic aorta. LUNGS / PLEURA: No significant pulmonary or pleural abnormality. No pneumothorax. ADDITIONAL FINDINGS: No significant additional findings. IMPRESSION: 1. No acute findings. Signer Name: Aftab Mast MD Signed: 04/17/2020 6:19 PM Workstation Name: [id number] Transcribed By: MADDIE Dictated By: Aftab Mast MD Electronically Authenticated By: Aftab Mast MD Signed Date/Time: 04/17/201818 DD/ 18 TD/TT: [address] [address] Cat Scan Report Signed Patient: CHEKO MORA MR#: [id number] : 1950 Acct:[id number] Age/Sex: 70 / M ADM Date: 04/17/20 Loc: ED Attending Dr: Ordering Physician: SEDRICK ARELLANO MD Date of Service: 04/17/20 Procedure(s): CT head/brain wo con Accession Number(s): [id number] cc: SEDRICK ARELLANO MD NONENHANCED CT SCAN OF THE BRAIN: INDICATION: neuro deficits <6hrs or sx present upon awakening. TECHNIQUE: Routine CT head without contrast. Sagittal and coronal reformatted images were obtained. All CT scans at this location are performed using CT dose reduction for ALARA by means of automated exposure control. COMPARISON: CT scan of the head from 06/18/20272018 FINDINGS: BRAIN / INTRACRANIAL CONTENTS: Hemorrhage:No intracranial hemorrhage; no subarachnoid hemorrhage Stroke mimics: None Acute/subacute territorial infarction: None Lacunar infarctions: No acute lacune Vasculopathy: Dense middle cerebral artery sign: Not present Internal carotid artery terminus: Normal Basilar artery:Normal Middle cerebral artery branches in the sylvian fissure (Dot sign): Normal Calcified embolus: Not present ASPECT score: Not applicable Chronic lesions: Chronic ischemia in the left inferior parietal lobule with compensatory enlarge ment of atrium of the left lateral ventricle; chronic ischemic changes in the left caudate, left external capsule: Periventricular low-attenuation white matter areas due to chronic small vessel disease Craniocervical junction:No significant abnormality Orbits:No significant abnormality Paranasal sin uses/mastoids:No significant abnormality Additional findings: None IMPRESSION: No acute/subacute infarction This exam was performed as part of a code stroke protocol. The exam was completed at [facility] on 04/17/2020 4:33 PM. The exam was reviewed at 4:38 PM Central daylight saving time and ER physician was notified at 4:40 PM Central daylight saving time. Signer Name: Robel Mcfarland MD Signed: 04/17/2020 5:40 PM Workstation Name: [id number] Transcribed By: BS Dictated By: Robel Severino MD Electronically Authenticated By: Robel Severino MD Signed Date/Time: 04/17/201739 DD/ 32 TD/TT: - Differential Diagnosis CVA, TIA Critical care attestation.: If time is entered above; I have spent that time in minutes in the direct care of this critically ill patient, excluding procedure time. ED Disposition Clinical Impression: Neurological deficit, transient Disposition: DC-09 OP ADMIT IP TO THIS HOSP Is pt being admited?: Yes Does the pt Need Aspirin: Yes Condition: Fair Time of Disposition: 18:27 (Hospitalist paged (Dr Rodriguez))
--- NOTE | 2020-04-17 17:45 | Cat Scan Report ---
NONENHANCED CT SCAN OF THE BRAIN: INDICATION: neuro deficits <6hrs or sx present upon awakening. TECHNIQUE: Routine CT head without contrast. Sagittal and coronal reformatted images were obtained. A ll CT scans at this location are performed using CT dose reduction for ALARA by means of automated ex posure control. COMPARISON: CT scan of the head from 06/18/20272018 FINDINGS: BRAIN / INTRACRANIAL CONTENTS: Hemorrhage:No intracranial hemorrhage; no subarachnoid hemorrhage Stroke mimics: None Acute/subacute territorial infarction: None Lacunar infarctions: No acute lacune Vasculopathy: Dense middle cerebral artery sign: Not present Internal carotid artery terminus: Normal Basilar artery:Normal Middle cerebral artery branches in the sylvian fissure (Dot sign): Normal Calcified embolus: Not present ASPECT score: Not applicable Chronic lesions: Chronic ischemia in the left inferior parietal lobule with compensatory enlargement of atrium of the left lateral ventricle; chronic ischemic changes in the left caudate, left external capsule: Periventricular low-attenuation white matter areas due to chronic small vessel disease Craniocervical junction:No significant abnormality Orbits:No significant abnormality Paranasal sinuses/mastoids:No significant abnormality Additional findings: None IMPRESSION: No acute/subacute infarction This exam was performed as part of a code stroke protocol. The exam was completed at [facility] on 04/17/2020 4:33 PM. The exam was reviewed at 4:38 PM Central daylight saving time a al ER physician was notified at 4:40 PM Central daylight saving time. Signer Name: Robel Mcfarland MD Signed: 04/17/2020 5:40 PM Workstation Name: [email or web address]
[2020-04-17 17:51] LABS: Basophils # (Auto) 0.1 K/mm3 (0.0-0.1); Basophils % (Auto) 0.8 % (0.0-1.8); Eosinophils # (Auto) 0.1 K/mm3 (0.0-0.4); Eosinophils % (Auto) 1.5 % (0.0-4.3); Hematocrit 34.1 % (35.5-45.6); Lymphocytes # (Auto) 1.9 K/mm3 (1.2-5.4); Lymphocytes % (Auto) 20.5 % (13.4-35.0); Mean Corpuscular HGB Conc 32 % (32-34); Mean Corpuscular Volume 96 fl (84-94); Monocytes # (Auto) 0.7 K/mm3 (0.0-0.8); Monocytes % (Auto) 7.7 % (0.0-7.3); Platelet Count 130 K/mm3 (140-440); Red Blood Count 3.54 M/mm3 (3.65-5.03)
[2020-04-17] MEDS ORDERED: SODIUM CHLORIDE 0.9% 1000 ML 1,000 ML IV ONE (17:59)
[2020-04-17 18:03] LABS: BUN/Creatinine Ratio 7; Blood Urea Nitrogen 10 mg/dL (9-20); Calcium 7.6 mg/dL (8.4-10.2); Hemolysis Index 77
[2020-04-17 18:07] LABS: INR 1.04 (0.87-1.13)
[2020-04-17 18:08] LABS: Partial Thromboplastin Time 22.8 Sec. (24.2-36.6)
--- NOTE | 2020-04-17 18:23 | XRay Report ---
CHEST 1 VIEW 04/17/2020 5:18 PM INDICATION / CLINICAL INFORMATION: Near syncope, low-grade temperature. COMPARISON: 07/13/2019 FINDINGS: SUPPORT DEVICES: Stable position of cardiac ICD. HEART / MEDIASTINUM: Normal heart size. Atherosclerosis in the thoracic aorta. LUNGS / PLEURA: No significant pulmonary or pleural abnormality. No pneumothorax. ADDITIONAL FINDINGS: No significant additional findings. IMPRESSION: 1. No acute findings. Signer Name: Aftab Mast MD Signed: 04/17/2020 6:19 PM Workstation Name: [id number]
[2020-04-17] MEDS ORDERED: levETIRAcetam 1000 MG/NS 0.75% 1,000 MG/100 ML BAG IV ONE ×2 (19:31)
--- NOTE | 2020-04-17 20:12 | History and Physical Report ---
History of Present Illness Chief complaint: confused History of present illness: 70 YO Male with HTN, PR, COPD, Cardiomyopathy S/P Pacemaker placement present to ED for evaluation. Patient is confused at the time of my exam and is unable to provide detailed history. Patient history taken from ED staff, EMS staff, and family members who are present at the time of the incident. As per family, the patient was in his usual state of health at 2000 hrs. last night. EMS was notified today by neighbors when the patient was observed to be crawling outside of his home and was found to have difficulty speaking. EMS notified and upon arrival the patient was found to have neurologic deficit. A code stroke was called and the patient was transported to [facility] for further evaluation and care. Patient seen and evaluated in the emergency department. Lab and imaging studies reviewed. Patient experienced a generalized tonic-clonic seizure while in the emergency department. Patient was treated with antiepileptic drug therapy. Patient was also found to have concomitant neurologic deficit with symptoms consistent with acute CVA. Tele-neurology was consulted. Patient was deemed to be outside of therapeutic window for TPA. A CT scan of the brain was conducted. No hemorrhage was observed. Patient placed in observation status and admitted to telemetry and initiated on stroke protocol. Neurology consulted in ED. No further history is obtainable. Prior admission on 07/08/2019 reviewed. No medication listed at time of admission for reconciliation. Past History Past Medical History: acute PR, COPD, hypertension, other (See HPI) Past Surgical History: Other (Pacemaker placement) Social history: single. denies: smoking, alcohol abuse Family history: hypertension Medications and Allergies Allergies Allergy/AdvReac Type Severity Reaction Status Date / Time No Known Allergies Allergy Unverified 07/13/19 08:08 Home Medications Medication Instructions Recorded Confirmed Last Taken Type ALBUTEROL NEB's 0.083 mg INHALATION PRN PRN 07/13/19 07/13/19 07/12/19 History Albuterol Sulfate [Proventil Hfa] 2 puff PO Q4H 07/13/19 07/13/19 07/12/19 History Allopurinol 300 mg PO QDAY 07/13/19 07/13/19 07/12/19 History AtorvaSTATin [Lipitor] 20 mg PO QDAY 07/13/19 07/13/19 07/12/19 History ISOSORBIDE MONOnitrate [Imdur ER] 60 mg PO QDAY 07/13/19 07/13/19 07/12/19 History Metoprolol SUCCINATE ER TAB 12.5 mg PO QDAY 07/13/19 07/13/19 07/12/19 History hydrALAZINE 25 mg PO TID 07/13/19 07/13/19 07/12/19 History Review of Systems ROS unobtainable: due to mental status Exam - Constitutional Vitals: Temp Pulse Resp BP Pulse Ox 100.0 F H 109 H 19 137/83 85 04/17/20 17:44 04/17/20 19:45 04/17/20 19:45 04/17/20 19:45 04/17/20 19:45 General appearance: Present: mild distress - EENT Eyes: Present: PERRL ENT: hearing intact, clear oral mucosa - Neck Neck: Present: supple, normal ROM - Respiratory Respiratory effort: normal Respiratory: bilateral: CTA - Cardiovascular Heart Sounds: Present: S1 & S2. Absent: rub, click - Extremities Extremities: pulses symmetrical, No edema Peripheral Pulses: within normal limits - Abdominal General gastrointestinal: Present: soft, non-tender, non-distended, normal bowel sounds Male genitourinary: Present: normal - Integumentary Integumentary: Present: clear, warm, dry - Musculoskeletal Musculoskeletal: generalized weakness - Psychiatric Psychiatric: appropriate mood/affect, no memory intact, other (Dysarthria) - Neurologic Neurologic: CNII-XII intact, no gait normal, other (Dysarthria) HEART Score - HEART Score Troponin: Troponin T < 0.010 ng/mL (0.00-0.029) 04/17/20 17:36 Results - Labs CBC & Chem 7: 04/17/20 17:36 04/17/20 17:36 Labs: Abnormal lab results 04/17/20 04/17/20 04/17/20 Range/Units 17:36 17:36 17:36 RBC 3.54 L (3.65-5.03) M/mm3 Hgb 11.0 L (11.8-15.2) gm/dl Hct 34.1 L (35.5-45.6) % MCV 96 H (84-94) fl RDW 20.0 H (13.2-15.2) % Plt Count 130 L (140-440) K/mm3 [place] % (Auto) 7.7 H (0.0-7.3) % APTT 22.8 L (24.2-36.6) Sec. Thrombin Time (15.1-19.6) Sec. Sodium 136 L (137-145) mmol/L Potassium 3.5 L (3.6-5.0) mmol/L Chloride 89.1 L (98-107) mmol/L Glucose 186 H (75-100) mg/dL Calcium 7.6 L (8.4-10.2) mg/dL 04/17/20 Range/Units 17:36 RBC (3.65-5.03) M/mm3 Hgb (11.8-15.2) gm/dl Hct (35.5-45.6) % MCV (84-94) fl RDW (13.2-15.2) % Plt Count (140-440) K/mm3 [place] % (Auto) (0.0-7.3) % APTT (24.2-36.6) Sec. Thrombin Time 15.0 L (15.1-19.6) Sec. Sodium (137-145) mmol/L Potassium (3.6-5.0) mmol/L Chloride (98-107) mmol/L Glucose (75-100) mg/dL Calcium (8.4-10.2) mg/dL Assessment and Plan - Patient Problems (1) CVA (cerebral vascular accident) Current Visit: No Status: Acute Qualifiers: CVA mechanism: unspecified Qualified Code(s): I63.9 - Cerebral infarction, unspecified Plan to address problem: CVA protocol: CT head, neuro check, carotid Doppler, echocardiogram, physical therapy consulted Occupational Therapy consulted speech therapy consulted, antiplatelet therapy, neurology consulted in ED, tele-neurology consulted, permissive hypertension overnight. (2) Seizure disorder Current Visit: Yes Status: Acute Plan to address problem: Patient be treated with Keppra therapy, neuro check, seizure precautions, aspiration precautions. (3) GERD (gastroesophageal reflux disease) Current Visit: No Status: Acute Qualifiers: Esophagitis presence: without esophagitis Qualified Code(s): K21.9 - Gastro -esophageal reflux disease without esophagitis Plan to address problem: PPI therapy, supportive care. (4) HTN (hypertension) Current Visit: No Status: Acute Qualifiers: Hypertension type: essential hypertension Qualified Code(s): I10 - Essential (primary) hypertension Plan to address problem: Permissive hypertension overnight. Monitor blood pressure every shift. (5) DVT prophylaxis Current Visit: Yes Status: Acute Plan to address problem: SCDs to bilateral lower extremities while in bed, patient is ambulatory (6) Advance care planning Current Visit: Yes Status: Acute Plan to address problem: Disease education conducted, patient knowledges understanding and agreement with care plan, +30 minutes. Patient is full code
[2020-04-17] MEDS ORDERED: PROMETHAZINE 25 MG RECT SUPP PR PRN (20:15)
[2020-04-17] MEDS ORDERED: ACETAMINOPHEN 325 MG TAB PO PRN (20:15)
[2020-04-17] MEDS ORDERED: METOCLOPRAMIDE 10 MG TAB PO PRN (20:15)
[2020-04-17] MEDS ORDERED: ONDANSETRON 4 MG/2 ML INJ IV PRN (20:15)
[2020-04-17] MEDS ORDERED: MAGNESIUM HYDROXIDE (MOM) ORAL LIQD UDC PO PRN (20:15)
[2020-04-18] MEDS ORDERED: NON-FORMULARY EACH (Allopurinol 300 MG) PO SCH (10:00)
[2020-04-18] MEDS: ASPIRIN 325 MG TAB PO SCH (11:23)
[2020-04-18] MEDS: allopurinoL 300 MG TAB PO SCH (11:23)
--- NOTE | 2020-04-18 11:56 | Vascular Lab Report ---
BILATERAL CAROTID DOPPLER ULTRASOUND INDICATION : stroke TECHNIQUE: Grayscale and color Doppler imaging performed through the neck. COMPARISON: None FINDINGS: Right: There is no significant atherosclerotic disease. Peak systolic velocity in the CCA is 39 cm/ s with end-diastolic velocity of 11 cm/s. Peak systolic velocity in the proximal ICA is 120 cm/s with end-diastolic velocity of 40 cm/s. ICA to CCA ratio is less than 2. There is antegrade flow in the ECA and the vertebral artery. Left: There is no significant atherosclerotic disease. Peak systolic velocity in the CCA is 45 cm/s w ith end-diastolic velocity of 12 cm/s. Peak systolic velocity in the proximal ICA is 124 cm/s with en d-diastolic velocity of 85 cm/s. ICA to CCA ratio is less than 2. There is antegrade flow in the ECA and the vertebral artery. IMPRESSION: No hemodynamically significant stenosis by NASCET criteria. Doppler velocities indicate l ess than 50% luminal narrowing throughout both carotid systems. Signer Name: Chris Valentine Jr, MD Signed: 04/18/2020 11:51 AM Workstation Name: [id number]
[2020-04-18 16:15] LABS: Chol/HDL Ratio 1.53 %
[2020-04-18 16:48] LABS: Color,Urine Dark Yellow (Yellow)
[2020-04-18 16:49] LABS: Bilirubin,Urine Small (Negative); Blood,Urine Negative (Negative)
[2020-04-18 16:50] LABS: Ictotest,Urine Negative (Negative)
[2020-04-19 08:16] VITALS: BP 127/70
[2020-04-19] MEDS: allopurinoL 300 MG TAB PO SCH (09:23)
[2020-04-19] MEDS: ASPIRIN 325 MG TAB PO SCH (09:23)
--- NOTE | 2020-04-19 09:28 | Progress Note ---
Assessment and Plan - Patient Problems (1) Acute CVA (cerebrovascular accident) Current Visit: Yes Status: Acute Plan to address problem: MRI pending Neurology consult (2) Seizure disorder Current Visit: Yes Status: Acute Plan to address problem: Continue seizure medication (3) GERD (gastroesophageal reflux disease) Current Visit: No Status: Chronic Qualifiers: Esophagitis presence: without esophagitis Qualified Code(s): K21.9 - Gastro-esophageal reflux disease without esophagitis Plan to address problem: Continue PPIs (4) HTN (hypertension) Current Visit: No Status: Chronic Qualifiers: Hypertension type: essential hypertension Qualified Code(s): I10 - Essential (primary) hypertension Plan to address problem: Continue antihypertensives (5) DVT prophylaxis Current Visit: Yes Status: Acute Plan to address problem: On heparin Subjective Date of service: 04/18/20 Principal diagnosis: Acute CVA Interval history: 70 YO Male with HTN, NM, COPD, Cardiomyopathy S/P Pacemaker placement present to ED for evaluation. Patient is confused at the time of my exam and is unable to provide detailed history. Patient history taken from ED staff, EMS staff, and family members who are present at the time of the incident. As per family, the patient was in his usual state of health at 2000 hrs. last night. EMS was notified today by neighbors when the patient was observed to be crawling outside of his home and was found to have difficulty speaking. EMS notified and upon arrival the patient was found to have neurologic deficit. A code stroke was called and the patient was transported to [facility] for further evaluation and care. Patient seen and evaluated in the emergency department. Lab and imaging studies reviewed. Patient experienced a generalized tonic-clonic seizure while in the emergency department. Patient was treated with antiepileptic drug therapy. Patient was also found to have concomitant neurologic deficit with symptoms consistent with acute CVA. Tele-neurology was consulted. Patient was deemed to be outside of therapeutic window for TPA. A CT scan of the brain was conducted. No hemorrhage was observed. Patient placed in observation status and admitted to telemetry and initiated on stroke protocol. Neurology consulted in ED. No further history is obtainable. Prior admission on 07/08/2019 reviewed. No medication listed at time of admission for reconciliation. Objective - Constitutional Vitals: Vital Signs - 12hr 04/18/20 04/19/20 04/19/20 22:00 00:00 01:34 Temperature 97.8 F Pulse Rate 92 H 91 H Pulse Rate [ 91 H From Monitor] Respiratory 18 18 Rate Blood Pressure Blood Pressure 121/83 [Left] O2 Sat by Pulse 98 Oximetry 04/19/20 04/19/20 04:17 07:19 Temperature 98.2 F 98.0 F Pulse Rate 92 H 84 Pulse Rate [ From Monitor] Respiratory 18 18 Rate Blood Pressure 134/80 127/70 Blood Pressure [Left] O2 Sat by Pulse 100 100 Oximetry General appearance: Present: no acute distress, well-nourished - EENT Eyes: PERRL, EOM intact ENT: hearing intact, clear oral mucosa Ears: bilateral: normal - Neck Neck: supple, normal ROM - Respiratory Respiratory effort: normal Respiratory: bilateral: CTA - Breasts Breasts: normal - Cardiovascular Heart rate: 78 Rhythm: regular Heart Sounds: Present: S1 & S2. Absent: gallop, rub Extremities: pulses intact, No edema, normal color, Full ROM - Gastrointestinal General gastrointestinal: Present: soft, non-tender, non-distended, normal bowel sounds - Genitourinary Male genitourinary: normal - Integumentary Integumentary: clear, warm, dry - Musculoskeletal Musculoskeletal: 1, strength equal bilaterally - Neurologic Neurologic: focal deficits, moves all extremities, other (Dysarthria) - Psychiatric Psychiatric: memory intact, appropriate mood/affect, intact judgment & insight - Labs CBC & Chem 7: 04/17/20 17:36 04/17/20 17:36 Labs: Abnormal lab results 04/18/20 04/18/20 Range/Units 14:31 Unknown LDL Cholesterol Direct 33 L (50-130) mg/dL HDL Cholesterol 83 H (40-59) mg/dL Ur Specific [place] 1.035 H (1.003-1.030) HEART Score - HEART Score Troponin: Troponin T < 0.010 ng/mL (0.00-0.029) 04/17/20 17:36
--- NOTE | 2020-04-19 09:47 | Discharge Summary ---
Providers - Providers Date of Admission: 04/17/20 20:15 Date of discharge: 04/19/20 Attending physician: STORM MEJIA 04/17/20 20:15 Occupational Therapy Evaluate and Treat [CONS] Routine Comment: Reason For Exam: Neuro deficits Physical Therapy Evaluation and Treat [CONS] Routine Comment: Reason For Exam: Neuro deficits 04/17/20 20:16 Speech Therapy Evaluation and Treat [CONS] Routine Reason For Exam: swallow eval 04/18/20 22:33 Consult to Physician [CONS] Routine Comment: Consulting Provider: JUNO HERRERA Physician Instructions: Reason For Exam: cva Hospitalization Condition: Fair Hospital course: 70 YO Male with HTN, [place], COPD, Cardiomyopathy S/P Pacemaker placement present to ED for evaluation. Patient is confused at the time of my exam and is unable to provide detailed history. Patient history taken from ED staff, EMS staff, and family members who are present at the time of the incident. As per family, the patient was in his usual state of health at 2000 hrs. last night. EMS was notified today by neighbors when the patient was observed to be crawling outside of his home and was found to have difficulty speaking. EMS notified and upon arrival the patient was found to have neurologic deficit. A code stroke was called and the patient was transported to [facility] for further evaluation and care. Patient seen and evaluated in the emergency department. Lab and imaging studies reviewed. Patient experienced a generalized tonic-clonic seizure while in the emergency department. Patient was treated with antiepileptic drug therapy. Patient was also found to have concomitant neurologic deficit with symptoms consistent with acute CVA. Tele-neurology was consulted. Patient was deemed to be outside of therapeutic window for TPA. A CT scan of the brain was conducted. No hemorrhage was observed. Patient placed in observation status and admitted to telemetry and initiated on stroke protocol. Neurology consulted in ED. No further history is obtainable. Prior admission on 07/08/2019 reviewed. MRI could not be done b/c of Pace maker ECHO EF 40 to 45 percent CDS--no significant obstruction Home health arranged (1) Acute CVA (cerebrovascular accident) Current Visit: Yes Status: Acute Plan to address problem: Improved d/c on Plavix and ASA (2) Seizure disorder Current Visit: Yes Status: Acute Plan to address problem: Continue seizure medication (3) GERD (gastroesophageal reflux disease) Current Visit: No Status: Chronic Qualifiers: Esophagitis presence: without esophagitis Qualified Code(s): K21.9 - Gastro-esophageal reflux disease without esophagitis Plan to address problem: Continue PPIs (4) HTN (hypertension) Current Visit: No Status: Chronic Qualifiers: Hypertension type: essential hypertension Qualified Code(s): I10 - Essential (primary) hypertension Plan to address problem: Continue antihypertensives (5) HLD Statins Disposition: - TO HOME OR SELFCARE - Discharge Diagnoses (1) Acute CVA (cerebrovascular accident) Status: Acute (2) Seizure disorder Status: Acute (3) GERD (gastroesophageal reflux disease) Status: Chronic Qualifiers: Esophagitis presence: without esophagitis Qualified Code(s): K21.9 - Gastr o-esophageal reflux disease without esophagitis (4) HTN (hypertension) Status: Chronic Qualifiers: Hypertension type: essential hypertension Qualified Code(s): I10 - Essential (primary) hypertension (5) HLD (hyperlipidemia) Status: Acute (6) DVT prophylaxis Status: Acute Core Measure Documentation - Palliative Care Palliative Care/ Comfort Measures: Not Applicable - Core Measures Any of the following diagnoses?: none Exam - Constitutional Vitals: Temp Pulse Resp BP Pulse Ox 98.0 F 84 18 127/70 100 04/19/20 07:19 04/19/20 07:19 04/19/20 07:19 04/19/20 07:19 04/19/20 07:19 General appearance: Present: no acute distress, well-nourished - EENT Eyes: Present: PERRL ENT: hearing intact, clear oral mucosa - Neck Neck: Present: supple, normal ROM - Respiratory Respiratory effort: normal Respiratory: bilateral: CTA - Cardiovascular Rhythm: regular (78) Heart Sounds: Present: S1 & S2. Absent: rub, click - Extremities Extremities: pulses symmetrical, No edema Peripheral Pulses: within normal limits - Abdominal General gastrointestinal: Present: soft, non-tender, non-distended, normal bowel sounds Male genitourinary: Present: normal - Rectal Rectal Exam: deferred - Integumentary Integumentary: Present: clear, warm, dry - Musculoskeletal Musculoskeletal: gait normal, strength equal bilaterally - Psychiatric Psychiatric: appropriate mood/affect, intact judgment & insight - Neurologic Neurologic: CNII-XII intact, moves all extremities - Allied Health Allied health notes reviewed: nursing Plan Activity: no restrictions Diet: low cholesterol, low salt Follow up with: KENDELL DIXON [Other] - 7 Days KARTIK MENA MD [Staff Physician] - 7 Days
--- NOTE | 2020-04-19 14:17 | Cat Scan Report ---
CT HEAD WITHOUT CONTRAST INDICATION / CLINICAL INFORMATION: seizure. TECHNIQUE: All CT scans at this location are performed using CT dose reduction for ALARA by means of automated e xposure control. COMPARISON: 04/17/2020 FINDINGS: HEMORRHAGE: No evidence of intracranial hemorrhage or extra-axial fluid collection. EXTRA-AXIAL SPACES: Cortical sulci, sylvian fissures and basilar cisterns have an unremarkable appear ance. VENTRICULAR SYSTEM: The ventricular system is of normal size and configuration. CEREBRAL PARENCHYMA: No new areas of abnormal brain parenchymal attenuation are identified. Stable le ft inferior parietal hypodensity consistent with a chronic infarct. There is no indication of recent infarction. MIDLINE SHIFT OR HERNIATION: There is no mass effect. CEREBELLUM / BRAINSTEM: Brainstem and cerebellum have an unremarkable appearance. INTRACRANIAL VESSELS:No abnormalities are identified on this noncontrast head CT. ORBITS: visualized portions of the orbits have an unremarkable appearance. SOFT TISSUES of HEAD: No significant abnormality. CALVARIUM: Evaluation of bone windows reveals no abnormalities. PARANASAL SINUSES / MASTOID AIR CELLS: Paranasal sinuses are free from inflammatory mucosal disease. Mastoid air cells are normally pneumatized. ADDITIONAL FINDINGS: None. IMPRESSION: 1. No acute intracranial abnormality. 2. Chronic left inferior parietal infarct. Signer Name: Chris Kat MD Signed: 04/19/2020 2:12 PM Workstation Name: [id number]
--- NOTE | 2020-04-19 16:31 | Consultation ---
History of Present Illness Consult date: 04/19/20 Reason for Consult: Seizure, possible stroke Chief complaint: Seizure, possible stroke History of present illness: Patient is a 70 y/o man w/ a h/o CVA w/ residual intermittent dysarthria and aphasia, HTN, HLD, CAD, COPD, cardiomyopathy s/p PPM. The patient was reportedly feeling unwell at home, and called his neighbor. His neighbor found him crawling on the floor, and noted that his speech was slurred. Patient was then brought to [facility] for further evaluation. In discussion with the patient's daughter, she stated that he has occasional dysarthia and aphasia as residual symptoms from his stroke, however this is not a daily finding. In the ER, patient was noted to have a seizure, for which he was given keppra. He reportedly has not had seizures in the past. He lives alone and drives. Past History Past Medical History: acute [place], COPD, hypertension, other (See HPI) Past Surgical History: Other (Pacemaker placement) Social history: single. denies: smoking, alcohol abuse Family history: hypertension Medications and Allergies Allergies Allergy/AdvReac Type Severity Reaction Status Date / Time No Known Allergies Allergy Unverified 07/13/19 08:08 Home Medications Medication Instructions Recorded Confirmed Last Taken Type ALBUTEROL NEB's 0.083 mg INHALATION PRN PRN #50 04/19/20 Unknown Rx Albuterol Sulfate [Proventil Hfa] 2 puff PO Q4H #1 04/19/20 Unknown Rx Allopurinol 300 mg PO QDAY #30 04/19/20 Unknown Rx Aspirin 325 mg PO QDAY #100 tablet 04/19/20 Unknown Rx AtorvaSTATin [Lipitor] 40 mg PO QDAY #30 04/19/20 Unknown Rx AtorvaSTATin [Lipitor] 40 mg PO QHS #30 tablet 04/19/20 Unknown Rx Clopidogrel [Plavix] 75 mg PO QDAY 30 Days #30 tablet 04/19/20 Unknown Rx ISOSORBIDE MONOnitrate [Imdur ER] 60 mg PO QDAY #30 tablet 04/19/20 Unknown Rx Metoprolol SUCCINATE ER TAB 12.5 mg PO QDAY #60 04/19/20 Unknown Rx hydrALAZINE 25 mg PO TID #90 04/19/20 Unknown Rx Active Meds: Active Medications Acetaminophen (Tylenol) 650 mg PO Q4H PRN PRN Reason: Pain, Mild (1-3) Allopurinol (Zyloprim) 300 mg PO QDAY [facility] Last Admin: 04/19/20 09:23 Dose: 300 mg Documented by: Aspirin (Aspirin) 325 mg PO QDAY [facility] Last Admin: 04/19/20 09:23 Dose: 325 mg Documented by: Atorvastatin Calcium (Lipitor) 40 mg PO QHS [facility] Last Admin: 04/18/20 23:34 Dose: 40 mg Documented by: Bisacodyl (Dulcolax) 10 mg AK QDAY PRN PRN Reason: Constipation Isosorbide Mononitrate (Imdur) 60 mg PO QDAY [facility] Last Admin: 04/19/20 09:23 Dose: 60 mg Documented by: Levetiracetam (Keppra) 750 mg PO BID [facility] Magnesium Hydroxide (Milk Of Magnesia) 30 ml PO Q4H PRN PRN Reason: Constipation Metoclopramide HCl (Reglan) 10 mg PO Q6H PRN PRN Reason: Nausea And Vomiting Ondansetron HCl (Zofran) 4 mg IV Q8H PRN PRN Reason: Nausea And Vomiting Promethazine HCl (Phenergan) 25 mg AK Q6H PRN PRN Reason: Nausea And Vomiting Sodium Chloride (Sodium Chloride Flush Syringe 10 Ml) 10 ml IV PRN PRN PRN Reason: LINE FLUSH Review of Systems All systems: negative Neurological: seizures, change in speech Physical Examination - Vital Signs Vital Signs: Vital Signs Pulse Resp 112 H 24 04/17/20 17:30 04/17/20 17:30 - Physical Exam Narrative exam: Patient is alert, awake, oriented x4, follows 2-step commands. Mild dysarthria noted. No aphasia noted. EOMI, VFF, tongue midline, bilaterally intact to LT, no facial weakness noted. 5/5 strength in all extremities. Bilaterally intact light touch. Bilaterally intact to FTN and HTS. - Constitutional General appearance: comfortable - EENT EENT: Present: ATNC - Level of Consciousness 1a. Level of Consciousness: alert/keenly responsive - LOC Questions 1b. LOC Questions: answers both correctly - LOC Command 1c. LOC Commands: performs tasks correctly - Best Gaze 2. Best Gaze: normal - Visual 3. Visual: no visual loss - Facial Palsy 4. Facial Palsy: normal symmetrical movement - Motor Arm 5a. Motor Arm Left: no drift 5b. Motor Arm Right: no drift - Motor Leg 6a. Motor Leg Left: no drift 6b. Motor Leg Right: no drift - Limb Ataxia 7. Limb Ataxia: absent - Sensory 8. Sensory: normal - Best Language 9. Best Language: no aphasia - Dysarthria 10. Dysarthria: mild/moderate dysarthria - Extinction and Inattention 11. Extinction/Inattention: no abnormality - Scoring Total Score: 1 Stroke Severity: Minor Stroke Results - Laboratory Findings CBC and BMP: 04/17/20 17:36 04/17/20 17:36 Abnormal Lab Findings: Abnormal Labs 04/17/20 04/17/20 04/17/20 17:36 17:36 17:36 RBC 3.54 L Hgb 11.0 L Hct 34.1 L MCV 96 H RDW 20.0 H Plt Count 130 L [place] % (Auto) 7.7 H APTT 22.8 L Thrombin Time Sodium 136 L Potassium 3.5 L Chloride 89.1 L Glucose 186 H Calcium 7.6 L LDL Cholesterol Direct HDL Cholesterol Ur Specific [place] 04/17/20 04/18/20 04/18/20 17:36 14:31 Unknown RBC Hgb Hct MCV RDW Plt Count [place] % (Auto) APTT Thrombin Time 15.0 L Sodium Potassium Chloride Glucose Calcium LDL Cholesterol Direct 33 L HDL Cholesterol 83 H Ur Specific [place] 1.035 H Assessment and Plan Patient is a 70 y/o man w/ a h/o CVA w/ residual intermittent dysarthria and aphasia, HTN, HLD, CAD, COPD, cardiomyopathy s/p PPM, who p/w slurred speech, and had a seizure while in the ER. According to the patient's clinical findings, it is likely that he has had a seizure, as he was noted to have a GTC in the ER. This may explain patients symptoms of slurred speech which were noted on admission. Alternatively, he may have had a TIA. Plan: 1. Seizure and possible TIA: - MRI brain unable to be performed due to PPM - CTA head: pending - CUS: no significant stenosis. - CT head: Chronic left parietal infarct noted. No interval development of new infarct, with 2 CT head done during this admission for comparison. - Echo: EF 40-45%, LA normal size, bubble study negative - Cont. ASA - Cont. statin. LDL goal <70 - Telemetry monitoring while in house - PT/OT/ST - DVT Ppx: Recommend lovenox - Start patient on keppra 750mg BID. Discussed risks/benefits with patient and daughter, and they agreed to starting this medication. - Patient is not to drive until cleared by DMV/DPS. Patient and daughter understood and accepted this. Further discussed seizure precautions. - As patient is living alone, recommend case management/social secretary consult, to assess if patient is still able to care for himself. Concern that he may not be able to, given his co-morbidities. 2. Hypertension: - Recommend BP goal of normotension, as it has been >48 hours since symptoms onset. - Will continue to monitor patient. Thank you for allowing me to take part in the care of this patient. Maciej Hernandez MD Neurology This clinical encounter was provided via live telemedicine portal. Consultative service was provided for neurology to support local providers. The Acute Teleneurology team should be contacted with any neurologic worsening or clinical changes, new test results, or new patient history that is reported to or discovered by the local team following completion of the teleneurology consultation, specifically that which has the potential to impact the consultative recommendations. Patient/Family was informed the Neurology Consult would happen via TeleHealth consult by way of interactive audio and video telecommunications and consented to receiving care in this manner. Due to the potential for life-threatening deterioration due to underlying neurologic illness, and limited resources available for patient care, telemedicine was used as means of patient care. Telemedicine consultation is limited in the extent of physical exam that can be virtually provided. Time spent evaluating patient includes time for face to face visit via telemedicine, review of medical records, imaging studies and discussion of findings with prov iders, the patient and/or family.
[2020-04-19] MEDS ORDERED: levETIRAcetam 500 MG TAB PO SCH (22:00)
== END 2020-04-19 17:35 | disposition home or self-care (01) | DRG 65 ==
LOC: ED 17:14 → 4A 20:15 → OBSVTOIN 04-18 23:00
PROVIDERS: ADMIT Internal Medicine; ATTEND Internal Medicine
DX: I63.9 Cerebral infarction, unspecified (principal); I42.9 Cardiomyopathy, unspecified; I50.20 Unspecified systolic (congestive) heart failure; G40.909 Epilepsy, unspecified, not intractable, without status epilepticus; I11.0 Hypertensive heart disease with heart failure; J44.9 Chronic obstructive pulmonary disease, unspecified; K21.9 Gastro-esophageal reflux disease without esophagitis; E78.5 Hyperlipidemia, unspecified; I25.10 Atherosclerotic heart disease of native coronary artery without angina pectoris; I25.2 Old myocardial infarction; Z95.0 Presence of cardiac pacemaker; Z82.49 Family history of ischemic heart disease and other diseases of the circulatory system
CPT/HCPCS: 36415; 70450; 71045; 80048; 80061; 81001; 84484; 85025; 85610; 85670; 85730; 93005; 93306; 93880; 94760; G0378; A9270-GY; J1953; J7030